=== PATIENT | female | born 2000 | race Caucasian/White ===

== ENCOUNTER 2022-04-20 12:57 | Emergency (ER) | payer BC ==
[2022-04-20] MEDS ORDERED: Acetaminophen 500 MG TAB ONE (14:59)
[2022-04-20] MEDS ORDERED: Ketorolac Tromethamine 30 MG/ML VIAL ONE (14:59)
[2022-04-20 15:52] LABS: SARS-CoV-2 NAA Rapid Test Not Detected (NotDetected)
== END 2022-04-20 17:01 | disposition home or self-care (01) ==
LOC: CSHERS 12:57
DX: S09.90XA Unspecified injury of head, initial encounter (principal); R50.9 Fever, unspecified; R42 Dizziness and giddiness; R11.0 Nausea; Z20.822 Contact with and (suspected) exposure to COVID-19; W22.8XXA Striking against or struck by other objects, initial encounter
CPT/HCPCS: 99283; J1885

== ENCOUNTER 2022-04-29 23:28 | Emergency (ER) | payer BC ==
[2022-04-30 02:13] LABS: #Eosinphils 0.3 10x3/uL (0.0-0.5); #Monocytes 0.9 10x3/uL (0.0-1.1); %Basophils 0.4 % (0.0-2.0); %Eosinophils 3.2 % (0.0-6.0); %Lymphocytes 30.3 % (18.0-47.0); %Monocytes 8.2 % (0.0-10.0); %Neutrophils 57.5 % (40.0-75.0); Hemoglobin 12.8 g/dL (12.0-15.5); Mean Corpuscular HGB CONC 34.6 g/dL (32.0-36.0); Mean Corpuscular Volume 86.7 fl (81.6-98.3); Mean Platelet Volume 9.6 fl (7.4-10.4); Platelet Count 177 10x3/uL (150-450); RBC Distribution Width 11.7 % (11.5-14.5); Red Blood Cell (RBC) Count 4.27 10x6/uL (3.90-5.03); White Blood Cell (WBC) Count 10.4 10x3/uL (3.5-10.5)
[2022-04-30 02:27] LABS: BHCG - Serum Negative (NEGATIVE); Pregs Control Background? CLEAR/WHITE (CLR/WHITE); Pregs Control Bar Appear? YES (CONTROL BAR)
[2022-04-30 02:30] LABS: ALT (SGPT) 37 U/L (8-55); AST (SGOT) 34 U/L (5-34); Albumin 3.6 g/dL (3.5-5.0); Alkaline Phosphatase 56 U/L (40-110); Anion Gap 10 mmol/L (10-20); BUN (Urea Nitrogen) 22 mg/dL (7.0-18.7); Bilirubin, Total 0.2 mg/dL (0.2-1.2); Calc. Creatinine Clearance 0 mL/min (70-130); Calcium 8.8 mg/dL (7.8-10.44); Carbon Dioxide 26 mmol/L (22-29); Chloride 108 mmol/L (98-107); Estimated GFR 65; Glucose 92 mg/dL (70-105); Protein, Total 5.6 g/dL (6.0-8.3); Sodium 140 mmol/L (136-145)
== END 2022-04-30 03:39 | disposition home or self-care (01) ==
LOC: CSHERS 23:28
DX: R60.0 Localized edema (principal)
CPT/HCPCS: 36415; 80053; 84703; 85025